=== PATIENT | male | born 1965 | race Caucasian/White ===

== ENCOUNTER 2022-11-07 20:03 | Outpatient (CLI) | payer BC, SELFPAY | END 2022-11-07 20:04 | disposition home or self-care (01) | LOC: AMB 11-20 09:30 | PROVIDERS: PCP Family Medicine; Visit Provider Family Medicine | DX: I21.3 ST elevation (STEMI) myocardial infarction of unspecified site (principal) | CPT/HCPCS: A0425; A0428; A0434 ==